=== PATIENT | male | born 1995 | race African-American/Black ===

== ENCOUNTER 2020-05-16 14:16 | Emergency (ER) | payer SELFPAY ==
[~2020-05-16] VITALS: Ht 188 cm; Wt 86.2 kg
[2020-05-16 14:37] VITALS: BP 152/94
== END 2020-05-16 15:25 | disposition left against medical advice (07) ==
LOC: EDBD 14:16 → ER 14:16
DX: T65.91XA Toxic effect of unspecified substance, accidental (unintentional), initial encounter (principal); Z53.21 Procedure and treatment not carried out due to patient leaving prior to being seen by health care provider; Y92.89 Other specified places as the place of occurrence of the external cause